=== PATIENT | male | born 1950 | race Caucasian/White ===

== ENCOUNTER 2017-12-16 11:03 | Emergency (ER) | payer OTHER ==
[2017-12-16 12:06] VITALS: BP 124/70
--- NOTE | 2017-12-16 13:18 | UC ---
Eye Complaint HPI - HPI Summary HPI Summary: c/o L upper eyelid swelling and itching since yesterday. He states when he woke up this morning, his L eye was "caked shut". Denies pain to the eye, just in the eye lid. States he wears contact lenses, last use was 4 days ago. He doesn't have any prescription eye drops. HBA1c is 6% as of last check. He lives in [place] where his PCP is. Denies chills fever, visual disturbance. - History of Current Complaint Chief Complaint: UCEye Stated Complaint: LEFT EYE COMPLAINT Time Seen by Provider: 12/16/17 13:07 Hx Obtained From: Patient Onset/Duration: Sudden Onset, Lasting Days Timing: Constant Severity Initially: Mild Severity Currently: Moderate Pain Intensity: 7 Location of Injury: Eye Lid (upper) Character: Dull Aggravating Factor(s): Contact Lens Alleviating Factor(s): Nothing Associated Signs And Symptoms: Positive: Drainage (Purulent) - Risk Factors Penetrating Injury Risk Factor: Negative Globe Rupture Risk Factors: Negative Acute Glaucoma Risk Factors: Negative Optic Artery Occlusion Risk Factors: Negative - Allergies/Home Medications Allergies/Adverse Reactions: Allergies Allergy/AdvReac Type Severity Reaction Status Date / Time codeine AdvReac Vomiting Verified 12/16/17 12:06 Home Medications: Home Medications Atorvastatin* [Lipitor*] 40 mg PO 1700 12/16/17 [History Confirmed 12/16/17] Empagliflozin [Jardiance] 10 mg PO DAILY 12/16/17 [History Confirmed 12/16/17] Linagliptin (NF) [Tradjenta (NF)] 5 mg PO DAILY 12/16/17 [History Confirmed ] metFORMIN* [Glucophage 500 MG TAB *] 500 mg PO BID 12/16/17 [History Confirmed 12/16/17] PMH/Surg Hx/FS Hx/Imm Hx Previously Healthy: Yes Endocrine History: Diabetes, Dyslipidemia - Surgical History Surgical History: Yes Surgery Procedure, Year, and Place: [place] to R side of face. L and R shoulders - Family History Known Family History: Positive: Diabetes - Social History Alcohol Use: Daily Alcohol Amount: wine Substance Use Type: None Smoking Status (MU): Never Smoked Tobacco Review of Systems Constitutional: Negative Eyes: Drainage All Other Systems Reviewed And Are Negative: Yes Physical Exam Triage Information Reviewed: Yes Appearance: Well-Appearing, No Pain Distress, Well-Nourished Vital Signs: Initial Vital Signs Temp 98.4 F 12/16/17 11:59 Pulse 66 12/16/17 11:59 Resp 16 12/16/17 11:59 BP 124/70 12/16/17 11:59 Pulse Ox 98 12/16/17 11:59 Vital Signs Reviewed: Yes Eyes: Positive: Conjunctiva Clear, Discharge, Other: - soft tissue swelling upper left eyelid, no bruising or bleeding, no foreign body on eversion of eyelid, no cobbling, normal mucosa. SARKIS, EOM WNL ENT: Positive: Hearing grossly normal, Pharynx normal, TMs normal, Uvula midline Neck: Positive: Supple, Nontender, No Lymphadenopathy Respiratory: Positive: Chest non-tender, Lungs clear, Normal breath sounds Abdomen Description: Positive: Nontender, No Organomegaly, Soft Eye Complaint Course/Dx - Course Course Of Treatment: Left blepharitis starting several days after contact lense use. No lesions or FB present on eversion of eyelid, to start keflex and polytrim ophthalmic drops as prescribed for 5 days. F/u with PCP in [place] in 7 days. - Differential Dx/Diagnosis Provider Diagnoses: Blepharitis left upper eyelid Discharge - Sign-Out/Discharge Documenting (check all that apply): Patient Departure All imaging exams completed and their final reports reviewed: No Studies - Discharge Plan Condition: Stable Disposition: HOME Patient Education Materials: Blepharitis (ED), Cephalexin (By mouth), Polymyxin B/Trimethoprim (Into the eye) Referrals: Abrahan Tillman MD [Primary Care Provider] - - Billing Disposition and Condition Condition: STABLE Disposition: Home
== END 2017-12-16 13:26 | disposition home or self-care (01) ==
LOC: UCCORT 11:03
DX: H01.004 Unspecified blepharitis left upper eyelid (principal); Z88.5 Allergy status to narcotic agent; E11.9 Type 2 diabetes mellitus without complications; Z79.84 Long term (current) use of oral hypoglycemic drugs
CPT/HCPCS: 99202; G0463